=== PATIENT | female | born 1970 | race Caucasian/White ===

== ENCOUNTER 2017-04-21 18:40 | Emergency (ER) | payer OTHER ==
[~2017-04-21] VITALS: Ht 162.6 cm; Wt 67.0 kg
[~2017-04-21 18:40] MED LIST: CYCL-36 PO; HYDR-3534 PO; IBUP800T23 PO; LORA-392 PO
[2017-04-21 18:41] VITALS: BP 145/84; PULSE 80; RESP 16; TEMP 98.6; O2SAT 100
--- NOTE | 2017-04-21 18:49 | PD ---
Physical Exam Date Seen by Provider: Apr 21, 2017 Time Seen by Provider: 18:47 Narrative 47 yo female here for chest pains on/off for a couple of days. Nothing makes it better. Pain and tightness. Some vomiting. SOB. Taking steroids. Supposed to have surgery. Dr Wilson is his doctor. Anemic. Vitals stable in triage. Awaiting bed placement Data Data Last Documented VS Vital Signs Date Time Temp Pulse Resp B/P (MAP) Pulse Ox O2 Delivery O2 Flow Rate FiO2 04/21/17 18:41 98.6 80 16 145/84 (104) 100 MDM Medical Record Reviewed: Yes Supervised Visit with ROBERTO: No Fabio Tomlin Apr 21, 2017 18:49
[2017-04-21] MEDS ORDERED: HYDR-3533 PO (19:51)
[2017-04-21] MEDS ORDERED: TEMA15CA PO (19:51)
[2017-04-21] MEDS ORDERED: MEGE20TA PO (19:51)
[2017-04-21] MEDS ORDERED: LORA-392 PO (19:51)
--- NOTE | 2017-04-21 19:55 | PD ---
HPI Chief Complaint: sob Time Seen by Provider: 19:34 Travel History International Travel<30 days: No Contact w/Intl Traveler<30days: No Traveled to known affect area: No History of Present Illness HPI 47yo F with severe iron deficient anemia secondary to uterine bleeding from fibroid here with c/o worsening exertional sob for the last few days. Pt has been feeling generalized fatigue. Has intermittent pressure like pain under bilateral breast as well as left axilla as well. Last episode was 2 days ago. Denies any chest pain currently. Occasional cough. Denies any fever, cough, vomiting, abdominal pain, focal weakness or numbness. Pt is on megace to decrease vaginal bleeding and follows with Dr. Wilson for her iron deficient anemia. She had IV iron Apr 14. Her [employer] is planning hysterectomy soon. PFSH Past Medical History Arthritis: No Anxiety: Yes Depression: No Cancer: No Cardiovascular Problems: No Endocrine: No Genitourinary: No Immune Disorder: No Neurologic: No Psychiatric: Yes Reproductive: No Respiratory: No Influenza Vaccination: No ?: Not LMP: 03/2017 Past Surgical History Abdominal Surgery: No Cardiac Surgery: No Ear Surgery: No Endocrine Surgery: No Eye Surgery: No Genitourinary Surgery: No Gynecologic Surgery: No Oral Surgery: No Pacemaker: No Thoracic Surgery: No Other Surgery: Yes (left ankle fx.) Social History Alcohol Use: Yes (2X/WK) Tobacco Use: No Substance Use: No Allergies-Medications (Allergen,Severity, Reaction): Coded Allergies: No Known Allergies (Unverified , 04/21/17) Reported Meds & Prescriptions Reported Meds & Active Scripts Active Reported Megestrol (Megestrol Acetate) 20 Mg Tab 20 Mg PO BID Temazepam 15 Mg Cap 15 Mg PO HS PRN Ativan (Lorazepam) 0.5 Mg Tab 0.5 Mg PO HS Lortab (Hydrocodone-Acetaminophen) 5-325 Mg Tab 1 Tab PO Q8HR PRN Review of Systems Except as stated in HPI: all other systems reviewed are Neg Physical Exam Narrative GENERAL: 47yo F in mild distress. SKIN: Focused skin assessment warm/dry. HEAD: Atraumatic. Normocephalic. EYES: Pupils equal and round. No scleral icterus. No injection or drainage. ENT: No nasal bleeding or discharge. Mucous membranes pink and moist. NECK: Trachea midline. No JVD. CARDIOVASCULAR: Regular rate and rhythm. No murmur appreciated. RESPIRATORY: No accessory muscle use. Clear to auscultation. Breath sounds equal bilaterally. GASTROINTESTINAL: Abdomen soft, non-tender, nondistended. No rebound tenderness or guarding. MUSCULOSKELETAL: No obvious deformities. No clubbing. No cyanosis. No edema. NEUROLOGICAL: Awake and alert. No obvious cranial nerve deficits. Motor grossly within normal limits. Normal speech. PSYCHIATRIC: Appropriate mood and affect; insight and judgment normal. Data Data Last Documented VS Vital Signs Date Time Temp Pulse Resp B/P (MAP) Pulse Ox O2 Delivery O2 Flow Rate FiO2 04/21/17 22:34 04/21/17 22:26 64 18 100 Room Air 04/21/17 18:41 98.6 Orders Orders Electrocardiogram (04/21/17 18:49) Complete Blood Count With Diff (04/21/17 18:49) Comprehensive Metabolic Panel (04/21/17 18:49) Troponin I (04/21/17 18:49) Lipase (04/21/17 18:49) Magnesium (Mg) (04/21/17 18:49) Chest, Single Ap (04/21/17 18:49) Potassium Chloride (Kcl) (04/21/17 22:00) Labs Laboratory Tests Test 04/21/17 20:00 White Blood Count 10.8 TH/MM3 Red Blood Count 5.07 MIL/MM3 Hemoglobin 10.5 GM/DL Hematocrit 35.5 % Mean Corpuscular Volume 69.9 FL Mean Corpuscular Hemoglobin 20.7 PG Mean Corpuscular Hemoglobin Concent 29.6 % Red Cell Distribution Width 21.1 % Platelet Count 357 TH/MM3 Mean Platelet Volume 9.2 FL Neutrophils (%) (Auto) 61.6 % Lymphocytes (%) (Auto) 28.2 % Monocytes (%) (Auto) 7.3 % Eosinophils (%) (Auto) 2.0 % Basophils (%) (Auto) 0.9 % Neutrophils # (Auto) 6.6 TH/MM3 Lymphocytes # (Auto) 3.0 TH/MM3 Monocytes # (Auto) 0.8 TH/MM3 Eosinophils # (Auto) 0.2 TH/MM3 Basophils # (Auto) 0.1 TH/MM3 CBC Comment AUTO DIFF Differential Comment AUTO DIFF CONFIRMED Platelet Estimate NORMAL Platelet Morphology Comment ENLARGED Spherocytes 1+ Tear Drop Cells Keratocytes OCC Blood Urea Nitrogen 13 MG/DL Creatinine 0.89 MG/DL Random Glucose 64 MG/DL Total Protein 8.1 GM/DL Albumin 4.0 GM/DL Calcium Level 8.7 MG/DL Magnesium Level 2.3 MG/DL Alkaline Phosphatase 117 U/L Aspartate Amino Transf (AST/SGOT) 25 U/L Alanine Aminotransferase (ALT/SGPT) 27 U/L Total Bilirubin 0.2 MG/DL Sodium Level 138 MEQ/L Potassium Level 3.2 MEQ/L Chloride Level 105 MEQ/L Carbon Dioxide Level 22.4 MEQ/L Anion Gap 11 MEQ/L Estimat Glomerular Filtration Rate 68 ML/MIN Troponin I LESS THAN 0.02 NG/ML Lipase 269 U/L MDM Medical Decision Making Medical Screen Exam Complete: Yes Emergency Medical Condition: Yes Differential Diagnosis Symptomatic anemia vs. demand ischemia vs. musculoskeletal pain vs. pneumonia vs. electrolyte abnormality Narrative Course 47yo F with history of iron deficient anemia here with sob that is worst with walking. Labs reviewed, no leukocytosis. H/H low at 10.5/35.5 which is better than her previous at 8.4/25.5. Mild hypokalemia at 3.2, replaced orally. Glucose is low at 64, pt given juice. Repeat glucose 86. Troponin is negative. Pt has not had any chest pain for 2 days and it is very atypical. Do not think it was cardiac. CXR negative. Pt reevaluated at bedside and is feeling better. Pt is well appearing with normal vital signs and states her vaginal bleeding has been decreased since her megace. Pt has good follow up with Dr. Wilson and will have her follow up with him and her PMD. Return precautions given. Diagnosis Primary Impression: Anemia Qualified Codes: D50.0 - Iron deficiency anemia secondary to blood loss ( chronic) Patient Instructions: General Instructions Departure Forms: Tests/Procedures Additional Instructions: Please follow up with Dr. Wilson and primary care physician as outpatient. Return to the ED if symptoms worsen. Disposition: 01 DISCHARGE HOME Condition: Stable Nicci Corral Apr 21, 2017 19:54
[2017-04-21 19:58] VITALS: BP 140/72; PULSE 73; RESP 16; O2SAT 100
[2017-04-21 21:15] LABS: AUTOMATED NEUTROPHIL # 6.6 TH/MM3 (1.8-7.7); BASOPHIL # 0.1 TH/MM3 (0-0.2); BASOPHIL % 0.9 % (0.0-2.0); EOSINOPHIL # 0.2 TH/MM3 (0-0.4); HEMATOCRIT 35.5 % (35.0-46.0); LYMPH % 28.2 % (9.0-44.0); MEAN CELL VOLUME 69.9 FL (80.0-100.0); MEAN CORPUSCULAR HEMOGLOBIN 20.7 PG (27.0-34.0); MONO % 7.3 % (0.0-8.0); NEUT % 61.6 % (16.0-70.0); PLATELET COUNT 357 TH/MM3 (150-450); RED BLOOD COUNT 5.07 MIL/MM3 (4.00-5.30); RED CELL DISTRIBUTION WIDTH 21.1 % (11.6-17.2); WHITE BLOOD COUNT 10.8 TH/MM3 (4.0-11.0)
[2017-04-21 21:28] LABS: HEMO FLAGS AUTO DIFF; MEAN CORPUSCULAR HGB CONC 29.6 % (32.0-36.0)
--- NOTE | 2017-04-21 21:32 | RADRPT ---
EXAM DATE/TIME: 04/21/2017 20:24 [facility] COMPARISON: No previous studies available for comparison. INDICATIONS : Shortness of breath. MEDICAL HISTORY : None. SURGICAL HISTORY : None. ENCOUNTER: Initial ACUITY: 4 - 6 days PAIN SCORE: 0/10 LOCATION: Bilateral chest FINDINGS: PA and lateral views of the chest demonstrate the lungs to be symmetrically aerated without evidence of mass, infiltrate or effusion. The cardiomediastinal contours are unremarkable. Osseous structure s are intact. CONCLUSION: No acute disease. Jin Benedict MD on April 21, 2017 at 21:30 Board Certified Radiologist. This report was verified electronically.
[2017-04-21 21:34] LABS: ANION GAP 11 MEQ/L (5-15); AST (GOT) 25 U/L (15-37); BICARBONATE 22.4 MEQ/L (21.0-32.0); BLOOD UREA NITROGEN 13 MG/DL (7-18); CHLORIDE 105 MEQ/L (98-107); GLOMERULAR FILTRATION RATE 68 ML/MIN (>89); MAGNESIUM 2.3 MG/DL (1.5-2.5); POTASSIUM 3.2 MEQ/L (3.5-5.1); SODIUM (NA) 138 MEQ/L (136-145)
[2017-04-21 21:35] LABS: ALT (GPT) 27 U/L (10-53)
[2017-04-21 21:40] LABS: ALKALINE PHOSPHATASE 117 U/L (45-117); TOTAL BILIRUBIN ADULT 0.2 MG/DL (0.2-1.0)
[2017-04-21] MEDS ORDERED: POTASSIUM CHLORIDE 20 MEQ CONTROLLED RELEASE TAB PO ONE (22:00)
[2017-04-21 22:22] LABS: PLATELET ESTIMATE SMEAR NORMAL (NORMAL); PLATELET MORPHOLOGY ENLARGED (NORMAL); SCAN/DIFF AUTO DIFF CONFIRMED
[2017-04-21 22:26] VITALS: BP 111/74; PULSE 64; RESP 18; O2SAT 100
[2017-04-21 22:29] LABS: KERATOCYTES OCC (NORMAL); SPHEROCYTES 1+ (NORMAL)
--- NOTE | 2017-04-22 17:57 | EKG ---
Date Performed: 04/21/2017 Time Performed: 18:58:44 PTAGE: 47 years EKG: Sinus rhythm WITH SINUS ARRHYTHMIA NORMAL ECG Compared to prior tracing no significant change PREVIOUS TRACING : 10/25/2007 13.09 DOCTOR: Robbie Lezama Interpretating Date/Time 04/22/2017 17:56:39
== END 2017-04-21 22:35 | disposition home or self-care (01) ==
LOC: NEPE 18:40
DX: D50.0 Iron deficiency anemia secondary to blood loss (chronic) (principal); D25.9 Leiomyoma of uterus, unspecified; N93.9 Abnormal uterine and vaginal bleeding, unspecified; R06.02 Shortness of breath; E87.6 Hypokalemia; R53.83 Other fatigue; R05 Cough; I49.8 Other specified cardiac arrhythmias; F41.9 Anxiety disorder, unspecified
CPT/HCPCS: 71010; 80053; 83690; 83735; 84484; 85025; 93005; 99285

== ENCOUNTER → 2017-06-14 | Outpatient (CLI) | payer OTHER ==
[~2017-06-14] MED LIST changes: -CYCL-36 PO; +HYDR-3533 PO; -HYDR-3534 PO; -IBUP800T23 PO; +MEGE20TA PO; +TEMA15CA PO
[2017-06-14 12:51] LABS: BILIRUBIN, URINE NEG (NEG); BLOOD, URINE LARGE (NEG); GLUCOSE,URINE NEG (NEG); KETONE, URINE NEG (NEG); NITRITE,URINE NEG (NEG); PH, URINE 5.5 (5.0-8.5); URINE LEUKOCYTE ESTERASE NEG (NEG)
[2017-06-14 12:52] LABS: AUTOMATED NEUTROPHIL # 5.8 TH/MM3 (1.8-7.7); BASOPHIL % 0.6 % (0.0-2.0); EOSINOPHIL # 0.1 TH/MM3 (0-0.4); EOSINOPHIL % 1.6 % (0.0-4.0); HEMATOCRIT 40.9 % (35.0-46.0); HEMOGLOBIN 13.8 GM/DL (11.6-15.3); LYMPH % 19.7 % (9.0-44.0); LYMPHOCYTE # 1.5 TH/MM3 (1.0-4.8); MEAN CELL VOLUME 88.1 FL (80.0-100.0); MEAN CORPUSCULAR HEMOGLOBIN 29.8 PG (27.0-34.0); MEAN CORPUSCULAR HGB CONC 33.8 % (32.0-36.0); MEAN PLATELET VOLUME 11.9 FL (7.0-11.0); MONO % 6.2 % (0.0-8.0); MONOCYTE # 0.5 TH/MM3 (0-0.9); NEUT % 71.9 % (16.0-70.0); PLATELET COUNT 232 TH/MM3 (150-450); RED BLOOD COUNT 4.65 MIL/MM3 (4.00-5.30); RED CELL DISTRIBUTION WIDTH 13.6 % (11.6-17.2); WHITE BLOOD COUNT 7.9 TH/MM3 (4.0-11.0)
[2017-06-14 13:08] LABS: URINE COLOR STRAW (YELLW/STRAW)
[2017-06-14 13:09] LABS: WBC, URINE 0-2 /hpf (0-5)
[2017-06-14 13:10] LABS: BACTERIA, URINE OCC /hpf; SQUAMOUS EPITHELIAL CELL URINE 0-2 /hpf (0-5)
[2017-06-14 13:25] LABS: OVALOCYTES 1+ (NORMAL)
== END ==
LOC: PHPRE 12:07
PROVIDERS: ATTEND Obstetrics & Gynecology
DX: Z01.812 Encounter for preprocedural laboratory examination (principal); N92.0 Excessive and frequent menstruation with regular cycle; D64.89 Other specified anemias; D25.1 Intramural leiomyoma of uterus
CPT/HCPCS: 36415; 81001; 85025; 86077; 86850; 86870; 86900; 86901; 86902; 86920; 86922

== ENCOUNTER 2017-06-16 06:22 | Inpatient (IN) | payer OTHER ==
[~2017-06-16] VITALS: Ht 162.6 cm; Wt 70.4 kg
[2017-06-16] MEDS ORDERED: SODIUM CHLORID 0.9% 500 ML IV PRN (07:00)
[2017-06-16] MEDS ORDERED: METOPROLOL TARTRATE 25 MG TAB PO PRN (07:00)
[2017-06-16] MEDS ORDERED: POVIDONE IODINE 5% (ANTISEPSIS KIT) 4 APPLICATIONS EACH NARE PRN (07:00)
[2017-06-16] MEDS ORDERED: INSULIN HUMAN REGULAR 1,000 UNITS/10 ML VIAL SQ PRN (07:00)
[2017-06-16] MEDS ORDERED: CHLORHEXIDINE GLUCONATE 2 % 1 PACK (2 CLOTHS) TOPICAL PRN (07:00)
[2017-06-16] MEDS ORDERED: ceFAZolin 1,000 MG/NS 100 ML IV SCH ×2 (07:00)
[2017-06-16] MEDS ORDERED: LACTATED RINGER'S 1000 ML IV PRN (07:00)
[2017-06-16] MEDS ORDERED: SODIUM CHLORIDE 0.9% 20 ML VIAL ONE (08:35)
[2017-06-16] MEDS ORDERED: VASOPRESSIN 20 UNITS/ML VIAL (IVTITR) ONE (08:35)
[2017-06-16] MEDS ORDERED: NALOXONE HCL 0.4 MG/ML AMP IV PUSH PRN (10:00)
[2017-06-16] MEDS ORDERED: SODIUM CHLORIDE 0.9% FLUSH 10 ML FLUSH IV FLUSH PRN (10:00)
[2017-06-16] MEDS ORDERED: ONDANSETRON HCL 4 MG/2 ML VIAL IV PUSH PRN (10:00)
[2017-06-16] MEDS ORDERED: LORazepam 0.5 MG TAB PO PRN (10:00)
[2017-06-16] MEDS ORDERED: DOCUSATE SODIUM 100 MG CAP PO PRN (10:00)
[2017-06-16] MEDS ORDERED: PROMETHAZINE HCL 25 MG TAB PO PRN (10:00)
[2017-06-16 10:10] VITALS: PULSE 83
[2017-06-16] MEDS ORDERED: fentaNYL CITRATE 250 MCG/5 ML AMP ONE (10:13)
[2017-06-16] MEDS ORDERED: MIDAZOLAM HCL 2 MG/2 ML VIAL ONE (10:14)
[2017-06-16] MEDS ORDERED: MORPHINE SULFATE 4 MG/ML INJ ONE ×2 (10:19→10:47)
[2017-06-16] MEDS ORDERED: HYDROmorphone HCL PF 1 MG/ML VIAL ONE ×2 (10:24→10:58)
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
[2017-06-16] MEDS: MORPHINE SULFATE 30 MG/30 ML PCA IV SCH ×2 (11:38→16:12)
[2017-06-16] MEDS ORDERED: KETOROLAC TROMETHAMINE 60 MG/2 ML (IM) VIAL IM ONE (12:00)
[2017-06-16] MEDS ORDERED: PROPOFOL 200 MG/20 ML AMP IV ONE (12:00)
[2017-06-16] MEDS ORDERED: ONDANSETRON HCL 4 MG/2 ML VIAL IV PUSH ONE (12:00)
[2017-06-16] MEDS ORDERED: NEOSTIGMINE 3 MG/3 ML SYR IV ONE (12:00)
[2017-06-16] MEDS ORDERED: GLYCOPYRROLATE 1 MG/5 ML SYRINGE IV PUSH ONE (12:00)
[2017-06-16] MEDS: PCA - TOTAL MG MORPHINE DELIVERED PER SHIFT SCH ×2 (14:00→22:00)
[2017-06-16 14:45] VITALS: O2SAT 98
[2017-06-16 17:05] VITALS: BP 105/66; PULSE 69; RESP 18; TEMP 98; O2SAT 98
[2017-06-16 18:00] VITALS: BP 96/64; O2SAT 99
[2017-06-16] MEDS: KETOROLAC TROMETHAMINE 30 MG/ML (IVP) VIAL IV PUSH SCH ×2 (18:00→23:55)
[2017-06-16 20:25] VITALS: O2SAT 97
[2017-06-16 22:03] VITALS: PULSE 74; RESP 19; O2SAT 95
[2017-06-17 02:03] VITALS: BP 93/52; PULSE 78; RESP 16; O2SAT 98
[2017-06-17 05:22] LABS: HEMATOCRIT 33.1 % (35.0-46.0); MEAN CELL VOLUME 90.7 FL (80.0-100.0); MEAN CORPUSCULAR HEMOGLOBIN 29.6 PG (27.0-34.0); MEAN CORPUSCULAR HGB CONC 32.7 % (32.0-36.0); PLATELET COUNT 202 TH/MM3 (150-450); RED BLOOD COUNT 3.65 MIL/MM3 (4.00-5.30); RED CELL DISTRIBUTION WIDTH 13.3 % (11.6-17.2); WHITE BLOOD COUNT 8.3 TH/MM3 (4.0-11.0)
[2017-06-17 05:29] LABS: POTASSIUM 3.7 MEQ/L (3.5-5.1)
[2017-06-17 05:31] LABS: HEMO FLAGS AUTO DIFF
[2017-06-17 05:55] LABS: BANDS 5 % (0-6); NEUTROPHIL # MANUAL DIFF 7.1 TH/MM3 (1.8-7.7); PLATELET ESTIMATE SMEAR NORMAL (NORMAL); PLATELET MORPHOLOGY NORMAL (NORMAL); POLYS (SEG NEUTROPHILS) 80 % (16-70); SCAN/DIFF FINAL DIFF MANUAL; WBC DIFF SAMPLE 100
[2017-06-17] MEDS: KETOROLAC TROMETHAMINE 30 MG/ML (IVP) VIAL IV PUSH SCH (05:57)
[2017-06-17] MEDS: PCA - TOTAL MG MORPHINE DELIVERED PER SHIFT SCH (05:59)
[2017-06-17 06:03] VITALS: PULSE 78; RESP 22; O2SAT 98
[2017-06-17 08:00] VITALS: BP 98/68; PULSE 84; RESP 16; TEMP 97.7; O2SAT 99
[2017-06-17 08:30] VITALS: O2SAT 98
[2017-06-17] MEDS: MORPHINE SULFATE 30 MG/30 ML PCA IV SCH (08:31)
[2017-06-17 12:00] VITALS: BP 99/56; PULSE 77; RESP 20; TEMP 98.7
[2017-06-17] MEDS ORDERED: IBUPROFEN 600 MG TAB PO PRN (12:15)
[2017-06-17] MEDS ORDERED: ACETAMINOPHEN/HYDROcodone 325 MG/5 MG TAB PO PRN (12:15)
[2017-06-17] MEDS ORDERED: diphenhydrAMINE HCL 25 MG CAP PO PRN (15:45)
[2017-06-17 15:48] VITALS: BP 99/52; PULSE 66; RESP 16
--- NOTE | 2017-06-17 18:07 | HHI.DS ---
Discharge Summary Admission Date Jun 16, 2017 at 14:23 Discharge Date: Jun 17, 2017 Admitting Diagnosis anemia due to chronic blood loss submucous and intramural fibroids menorrhagia (1) Anemia due to chronic blood loss ICD Codes: D50.0 - Iron deficiency anemia secondary to blood loss (chronic) Status: Resolved (2) Menorrhagia with irregular cycle ICD Codes: N92.1 - Excessive and frequent menstruation with irregular cycle Status: Resolved (3) Intramural and submucous leiomyoma of uterus Diagnosis: Principal ICD Codes: D25.1 - Intramural leiomyoma of uterus; D25.0 - Submucous leiomyoma of uterus Status: Resolved Procedures Total abdominal hysterectomy with bilateral salpingectomy Brief History This 47 y/o has suffered gradually worsening menorrhagia for several years. Her uterus was 18 weeks size due to a large intramural and a submucous fibroid. She developed severe anemia with a Hb of 7.[address] Wilson has done several IV iron infusions and her pre-operative Hb was 13.7. CBC/BMP: 06/17/17 0420 06/17/17 0420 Significant Findings Laboratory Tests Test 06/17/17 04:20 Red Blood Count 3.65 MIL/MM3 (4.00-5.30) Hemoglobin 10.8 GM/DL (11.6-15.3) Hematocrit 33.1 % (35.0-46.0) Mean Platelet Volume 12.1 FL (7.0-11.0) Neutrophils % (Manual) 80 % (16-70) PE at Discharge Patient is in good spirits, tolerating regular diet. Incision is clean and dry, intact. The abdomen is soft with normal bowel sounds. The lungs are clear to auscultation. Hospital Course The patient had an uncomplicated abdominal hysterectomy. Her fibroids were large and obstructing to the surgery, so an myomectomy was done intra- operatively in order to accomplish the surgery. The ovaries were conserved, but the tubes were removed to decrease the chance of future ovarian cancer. Post- operatively the patient did well with normal progression. On post-operative day #1 she is eating a regula diet, is ambulatory and is taking analgesics by mouth. She requests discharge home. Pt Condition on Discharge: Good Discharge Disposition: Discharge Home Discharge Instructions DIET: Follow Instructions for: As Tolerated, No Restrictions Activities you can perform: Non Weight Bearing, Shower Only-No Bath, Pelvic Rest Additional Information Patient has post-op meds at home and has a follow up appointment with me next week. Katiana Rizo MD Jun 17, 2017 18:07
== END 2017-06-17 18:35 | disposition home or self-care (01) | DRG 743 ==
LOC: PHSDC 06:22 → EDSTATUS 07:30 → PHICU 14:23
PROVIDERS: ADMIT Obstetrics & Gynecology; ATTEND Obstetrics & Gynecology
PROC: 0UTC0ZZ Resection of Cervix, Open Approach (ICD-10-PCS; 2017-06-16)
PROC: 0UT70ZZ Resection of Bilateral Fallopian Tubes, Open Approach (ICD-10-PCS; 2017-06-16)
PROC: 0UB90ZZ Excision of Uterus, Open Approach (ICD-10-PCS; 2017-06-16)
PROC: 0UT90ZZ Resection of Uterus, Open Approach (ICD-10-PCS; principal; 2017-06-16 07:39)
DX: D25.0 Submucous leiomyoma of uterus (principal); D25.1 Intramural leiomyoma of uterus; D50.0 Iron deficiency anemia secondary to blood loss (chronic); N92.1 Excessive and frequent menstruation with irregular cycle
CPT/HCPCS: 82565; 84132; 85007; 85027; 88307; 94150; J0690; J1170; J1885; J2250; J2270; J2405; J2710; J3010; J7120